=== PATIENT | female | born 1955 | race Caucasian/White ===

== ENCOUNTER 2022-03-14 04:58 | Emergency (ER) | payer BC ==
[2022-03-14] MEDS ORDERED: Bupivacaine 0.5% 10 ML VIAL ONE (05:35)
[2022-03-14] MEDS ORDERED: Ketorolac Tromethamine 30 MG/ML VIAL ONE (05:46)
== END 2022-03-14 06:40 | disposition home or self-care (01) ==
LOC: BURERS 04:58
DX: M62.838 Other muscle spasm (principal); I10 Essential (primary) hypertension; Z79.899 Other long term (current) drug therapy
CPT/HCPCS: 20552; 96372; J1885; J3490